=== PATIENT | male | born 1950 | race Caucasian/White ===

== ENCOUNTER 2020-09-24 10:17 | Day surgery (SDC) | payer MEDICARE, BC ==
[2020-09-23 11:31] VITALS: BMI 25.0
[2020-09-24] MEDS ORDERED: Lidocaine 1% PF 5 ML VIAL ONE (12:16)
[2020-09-24] MEDS ORDERED: PROPOFOL 200 MG/20 ML VIAL ONE (12:16)
== END 2020-09-24 14:28 | disposition home or self-care (01) ==
LOC: MRI 10:17
PROVIDERS: ATTEND Nurse Practitioner Family
DX: M54.16 Radiculopathy, lumbar region (principal); M48.061 Spinal stenosis, lumbar region without neurogenic claudication; M48.04 Spinal stenosis, thoracic region; M48.05 Spinal stenosis, thoracolumbar region; Z79.82 Long term (current) use of aspirin; Z79.84 Long term (current) use of oral hypoglycemic drugs; Z79.899 Other long term (current) drug therapy
CPT/HCPCS: 72148; 93005; 93010